=== PATIENT | male | born 1990 | race Caucasian/White ===

== ENCOUNTER 2022-11-13 16:47 | Emergency (ER) | payer OTHER ==
[~2022-11-13] VITALS: Ht 188 cm; Wt 95.3 kg
[2022-11-13 20:03] VITALS: BP 129/84
== END 2022-11-13 20:05 | disposition home or self-care (01) ==
LOC: ED 16:47
DX: S06.0X1A Concussion with loss of consciousness of 30 minutes or less, initial encounter (principal); S83.91XA Sprain of unspecified site of right knee, initial encounter; X58.XXXA Exposure to other specified factors, initial encounter
CPT/HCPCS: 70450; 72125; 73560; 96374; 96375; 99284-25; J1885; J2060